=== PATIENT | female | born 1935 | race Caucasian/White ===

== ENCOUNTER 2017-08-27 16:10 | Emergency (ER) | payer MEDICARE ==
[2017-08-27 16:22] VITALS: BP 198/105; PULSE 70; RESP 18; TEMP 98.4; O2SAT 95
--- NOTE | 2017-08-27 16:38 | PD ---
HPI Chief Complaint: Fall Time Seen by Provider: 16:24 Travel History International Travel<30 days: No Contact w/Intl Traveler<30days: No Traveled to known affect area: No History of Present Illness HPI 82yo F with alzheimer's dementia, HTN presents to the ED after fall at [place]. Pt said she thinks she trip and fell but does really know what happened. Denies any fever, dizziness, chest pain, sob, n/v, abdominal pain, focal weakness or numbness. Per my nurse, there were witness at the facility and they said she got right up and walked. Pt has abrasions in forehead and nasal bridge. Said she is at baseline mental status. PFSH Past Medical History Cardiovascular Problems: Yes (high chol, HTN) Social History Tobacco Use: No Allergies-Medications (Allergen,Severity, Reaction): Coded Allergies: No Known Allergies (Unverified , 08/27/17) Reported Meds & Prescriptions Reported Meds & Active Scripts Active Tylenol (Acetaminophen) 325 Mg Tab 325 Mg PO Q4H PRN Reported Atorvastatin (Atorvastatin Calcium) 20 Mg Tab 20 Mg PO HS Ativan (Lorazepam) 0.5 Mg Tab 0.5 Mg PO DAILY PRN Alendronate (Alendronate Sodium) 70 Mg Tab 70 Mg PO Q7D Seroquel (Quetiapine Fumarate) 25 Mg Tab 25 Mg PO BID Memantine 5 Mg Tab 5 Mg PO DAILY Losartan (Losartan Potassium) 50 Mg Tab 50 Mg PO DAILY Levothyroxine (Levothyroxine Sodium) 75 Mcg Tab 75 Mcg PO DAILY Donepezil 10 Mg Tab 10 Mg PO HS Review of Systems Except as stated in HPI: all other systems reviewed are Neg Physical Exam Narrative GENERAL: 82yo F in mild distress. SKIN: Focused skin assessment warm/dry. HEAD: +Abrasion left forehead. EYES: Pupils 3mm bilaterally. EOMI. ENT: +Abrasion bridge of nose. No septal hematoma. NECK: No midline cervical spine ttp. CARDIOVASCULAR: Regular rate and rhythm. No murmur appreciated. RESPIRATORY: No accessory muscle use. Clear to auscultation. GASTROINTESTINAL: Abdomen soft, non-tender, nondistended. MUSCULOSKELETAL: No obvious deformities. No clubbing. No cyanosis. No edema. No ttp bilateral scaphoid. NEUROLOGICAL: Awake and alert. AAOx2. No obvious cranial nerve deficits. Motor grossly within normal limits. Normal speech. Data Data Last Documented VS Vital Signs Date Time Temp Pulse Resp B/P (MAP) Pulse Ox O2 Delivery O2 Flow Rate FiO2 08/27/17 19:26 18 08/27/17 19:23 76 95 Room Air 08/27/17 19:00 179/77 (111) 08/27/17 16:[address] Brain W/O Iv Contrast(Rout) (08/27/17 ) Ct Facial Bones W/O Iv Cont (08/27/17 ) Complete Blood Count With Diff (08/27/17 16:31) Basic Metabolic Panel (Bmp) (08/27/17 16:31) Magnesium (Mg) (08/27/17 16:31) Prothrombin Time / Inr (Pt) (08/27/17 16:31) Act Partial Throm Time (Ptt) (08/27/17 16:31) Electrocardiogram (08/27/17 ) Troponin I (08/27/17 16:31) Tetanus/Diphtheria Tox Adult (Tetanus/Di (08/27/17 18:30) Bacitracin Oint (Baciguent Oint) (08/27/17 18:30) Acetaminophen (Tylenol) (08/27/17 18:30) Ed Discharge Order (08/27/17 18:35) Labs Laboratory Tests Test 08/27/17 17:05 White Blood Count 5.8 TH/MM3 Red Blood Count 4.72 MIL/MM3 Hemoglobin 12.9 GM/DL Hematocrit 38.8 % Mean Corpuscular Volume 82.2 FL Mean Corpuscular Hemoglobin 27.3 PG Mean Corpuscular Hemoglobin Concent 33.3 % Red Cell Distribution Width 13.6 % Platelet Count 206 TH/MM3 Mean Platelet Volume 9.8 FL Neutrophils (%) (Auto) 68.6 % Lymphocytes (%) (Auto) 22.6 % Monocytes (%) (Auto) 5.6 % Eosinophils (%) (Auto) 2.4 % Basophils (%) (Auto) 0.8 % Neutrophils # (Auto) 4.1 TH/MM3 Lymphocytes # (Auto) 1.3 TH/MM3 Monocytes # (Auto) 0.3 TH/MM3 Eosinophils # (Auto) 0.1 TH/MM3 Basophils # (Auto) 0.0 TH/MM3 CBC Comment DIFF FINAL Differential Comment Prothrombin Time 9.7 SEC Prothromb Time International Ratio 1.0 RATIO Activated Partial Thromboplast Time 26.8 SEC Blood Urea Nitrogen 16 MG/DL Creatinine 0.91 MG/DL Random Glucose 121 MG/DL Calcium Level 8.5 MG/DL Magnesium Level 2.3 MG/DL Sodium Level 140 MEQ/L Potassium Level 3.8 MEQ/L Chloride Level 103 MEQ/L Carbon Dioxide Level 29.8 MEQ/L Anion Gap 7 MEQ/L Estimat Glomerular Filtration Rate 59 ML/MIN Troponin I LESS THAN 0.02 NG/ML MDM Medical Decision Making Medical Screen Exam Complete: Yes Emergency Medical Condition: Yes Interpretation(s) EKG: NSR 68bpm. Normal axis. Q wave III. QTc 433ms. No ST segment elevation or depression. Differential Diagnosis ICH vs. fracture vs. dehydration vs. electrolyte abnormality Narrative Course 82yo F with fall today. Pt has baseline dementia and is acting like herself. Labs reviewed, no leukocytosis. H/H normal. Troponin negative. BMP normal. Magnesium normal. CT brain showed no acute intracranial pathology. 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 CT facial showed soft tissue swelling in forehead. No acute facial bone fractures. Wound cleaned and bacitracin applied. Updated tetanus. Pt given acetaminophen for pain. Pt to be transferred back to nursing facility. Diagnosis Primary Impression: Head trauma Qualified Codes: S09.90XA - Unspecified injury of head, initial encounter Patient Instructions: General Instructions Departure Forms: Tests/Procedures Additional Instructions: Please follow up with your primary care physician in 3-7 days. Return to the ED if symptoms worsen. Med/Other Pt SpecificInfo: Prescription(s) given Scripts Acetaminophen (Tylenol) 325 Mg Tab 325 MG PO Q4H Y for PAIN SCALE 1 TO 4, #20 TAB 0 Refills Prov: Ambar Silva 08/27/17 Disposition: 03 DISCHARGE TO SNF Condition: Stable Ambar Silva Aug 27, 2017 16:38
[2017-08-27] MEDS ORDERED: MEMA1TAB PO (17:11)
[2017-08-27] MEDS ORDERED: ALEN1TAB48 PO (17:11)
[2017-08-27] MEDS ORDERED: SERO25TA PO (17:11)
[2017-08-27] MEDS ORDERED: DONE10TA7 PO (17:11)
[2017-08-27] MEDS ORDERED: ATOR20TA15 PO (17:11)
[2017-08-27] MEDS ORDERED: LOSA50TA PO (17:11)
[2017-08-27] MEDS ORDERED: LEVO75TA3 PO (17:11)
[2017-08-27] MEDS ORDERED: LORA-392 PO (17:11)
[2017-08-27 17:21] LABS: AUTOMATED NEUTROPHIL # 4.1 TH/MM3 (1.8-7.7); BASOPHIL % 0.8 % (0.0-2.0); EOSINOPHIL # 0.1 TH/MM3 (0-0.4); EOSINOPHIL % 2.4 % (0.0-4.0); HEMATOCRIT 38.8 % (35.0-46.0); HEMOGLOBIN 12.9 GM/DL (11.6-15.3); LYMPH % 22.6 % (9.0-44.0); LYMPHOCYTE # 1.3 TH/MM3 (1.0-4.8); MEAN CELL VOLUME 82.2 FL (80.0-100.0); MEAN CORPUSCULAR HEMOGLOBIN 27.3 PG (27.0-34.0); MEAN CORPUSCULAR HGB CONC 33.3 % (32.0-36.0); MEAN PLATELET VOLUME 9.8 FL (7.0-11.0); MONO % 5.6 % (0.0-8.0); MONOCYTE # 0.3 TH/MM3 (0-0.9); NEUT % 68.6 % (16.0-70.0); PLATELET COUNT 206 TH/MM3 (150-450); RED BLOOD COUNT 4.72 MIL/MM3 (4.00-5.30); RED CELL DISTRIBUTION WIDTH 13.6 % (11.6-17.2); WHITE BLOOD COUNT 5.8 TH/MM3 (4.0-11.0)
[2017-08-27 17:23] LABS: CHLORIDE 103 MEQ/L (98-107); SODIUM (NA) 140 MEQ/L (136-145)
[2017-08-27 17:24] VITALS: BP 196/94; PULSE 73; RESP 18; O2SAT 95
[2017-08-27 17:25] LABS: CALCIUM 8.5 MG/DL (8.5-10.1)
[2017-08-27 17:26] LABS: BICARBONATE 29.8 MEQ/L (21.0-32.0); BLOOD UREA NITROGEN 16 MG/DL (7-18); GLUCOSE,RANDOM 121 MG/DL (74-106); MAGNESIUM 2.3 MG/DL (1.5-2.5)
[2017-08-27 17:28] LABS: PROTHROMBIN TIME - PATIENT 9.7 SEC (9.8-11.6)
[2017-08-27 17:29] LABS: CREATININE 0.91 MG/DL (0.50-1.00); GLOMERULAR FILTRATION RATE 59 ML/MIN (>89)
--- NOTE | 2017-08-27 17:29 | RADRPT ---
EXAM DATE/TIME: 08/27/2017 17:17 [facility] COMPARISON: No previous studies available for comparison. INDICATIONS : Status post trip and fall. Hit forehead. No loc RADIATION DOSE: 60.39 CTDIvol (mGy) MEDICAL HISTORY : Alzheimer's Hypertension. SURGICAL HISTORY : None. ENCOUNTER: Initial ACUITY: 1 day PAIN SCALE: 4/10 LOCATION: cranial TECHNIQUE: Multiple contiguous axial images were obtained of the head. Using automated exposure control and adj ustment of the mA and/or kV according to patient size, radiation dose was kept as low as reasonably a chievable to obtain optimal diagnostic quality images. DICOM format image data is available electro nically for review and comparison. FINDINGS: CEREBRUM: The ventricles are normal for age. Bilateral cortical atrophy. Tiny old infarct in the right basal ga nglia. No evidence of midline shift, mass lesion, hemorrhage or acute infarction. No extra-axial fl uid collections are seen. POSTERIOR FOSSA: The cerebellum and brainstem are intact. The 4th ventricle is midline. The cerebellopontine angle i s unremarkable. EXTRACRANIAL: The visualized portion of the orbits is intact. SKULL: The calvaria is intact. No evidence of skull fracture. CONCLUSION: 1. No acute intracranial pathology. 2. 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 Herrera Oropeza MD on August 27, 2017 at 17:26 Board Certified Radiologist. This report was verified electronically.
[2017-08-27 17:34] LABS: TROPONIN I LESS THAN 0.02 NG/ML (0.02-0.05)
--- NOTE | 2017-08-27 18:01 | RADRPT ---
EXAM DATE/TIME: 08/27/2017 17:17 [facility] COMPARISON: No previous studies available for comparison. INDICATIONS : Status post trip and fall. Hit forehead and nose. RADIATION DOSE: 35.52 CTDIvol (mGy) MEDICAL HISTORY : Alzheimer's Hypertension. SURGICAL HISTORY : None. ENCOUNTER: Initial ACUITY: 1 day PAIN SCORE: 4/10 LOCATION: facial TECHNIQUE: Volumetric scanning of the facial bones was performed. Using automated exposure control and adjustme nt of the mA and/or kV according to patient size, radiation dose was kept as low as reasonably achiev able to obtain optimal diagnostic quality images. DICOM format image data is available electronicall y for review and comparison. FINDINGS: ORBITS: The orbital and infraorbital osseous structures are intact. The retroconal structures have a normal configuration. No radiopaque foreign bodies are seen. NASAL BONE: The nasal bone and maxillary spine are intact ZYGOMATIC ARCHES: Symmetric without evidence of fracture. SINUSES: The maxillary, ethmoid and frontal sinuses are intact. No air-fluid levels seen. NASAL CAVITY: The nasal septum is intact and midline. The lacrimal ducts are intact. SOFT TISSUES: No radiopaque foreign bodies seen. No soft-tissue swelling is seen. INTRACRANIAL: No intracranial air seen. CRIBIFORM PLATE: Grossly intact. CONCLUSION: 1. Soft tissue swelling in the forehead region. No acute facial bone fractures. Christopher Young MD on August 27, 2017 at 17:58 Board Certified Radiologist. This report was verified electronically.
[2017-08-27 18:08] VITALS: BP 187/83; PULSE 73; RESP 17; O2SAT 94
[2017-08-27] MEDS ORDERED: TYLE325T PO (18:20)
[2017-08-27] MEDS ORDERED: BACITRACIN TOP OINT 15 GM TUBE TOPICAL ONE (18:30)
[2017-08-27] MEDS ORDERED: TETANUS/DIPHTHERIA TOXOID ADULT 0.5 ML VIAL IM ONE (18:30)
[2017-08-27] MEDS ORDERED: ACETAMINOPHEN 500 MG CPLT PO ONE (18:30)
[2017-08-27 19:00] VITALS: BP 179/77
[2017-08-27 19:26] VITALS: RESP 18
--- NOTE | 2017-08-27 21:31 | EKG ---
Date Performed: 08/27/2017 Time Performed: 16:48:24 PTAGE: 82 years EKG: Sinus rhythm LOW QRS VOLTAGE IN PRECORDIAL LEADS POSSIBLE RIGHT VENTRICULAR CONDUCTION DELAY POSSIBLE INFERIOR MY OCARDIAL INFARCTION BORDERLINE ECG NO PREVIOUS TRACING DOCTOR: Diaz Mistry Interpretating Date/Time 08/27/2017 21:29:34
== END 2017-08-27 19:42 ==
LOC: PHED 16:10
DX: S09.90XA Unspecified injury of head, initial encounter (principal); R94.31 Abnormal electrocardiogram [ECG] [EKG]; I10 Essential (primary) hypertension; E78.00 Pure hypercholesterolemia, unspecified; Z23 Encounter for immunization; W01.0XXA Fall on same level from slipping, tripping and stumbling without subsequent striking against object, initial encounter; Y92.099 Unspecified place in other non-institutional residence as the place of occurrence of the external cause
CPT/HCPCS: 70450; 70486; 80048; 83735; 84484; 85025; 85610; 85730; 90471; 90714; 93005